=== PATIENT | female | born 1955 | race Two or more races ===

== ENCOUNTER 2024-02-02 10:22 | Inpatient (IN) | payer MEDICARE, MEDICAID ==
[2024-02-02] VITALS (7 sets, daily range): BP systolic 174–236; BP diastolic 75–103; PULSE 64–81; RESP 16–18; TEMP 36.6696; O2SAT 97–98
[~2024-02-02] VITALS: Ht 154.9 cm; Wt 90.0 kg
[2024-02-02 12:26] LABS: BASOPHILS % 0.7 % (0.0-2.0); EOSINOPHILS % 4.4 % (0.0-5.0); HEMOGLOBIN. 12.1 g/dL (12.0-16.0); LYMPHOCYTES % 15.3 % (20.0-50.0); MEAN CORPUSCULAR HEMOGLOBIN 33.6 pg (28.0-32.0); MEAN CORPUSCULAR HGB CONC 31.1 g/dL (31.0-37.0); MEAN CORPUSCULAR VOLUME 108.1 fL (81.0-99.0); MONOCYTES % 5.7 % (2.0-8.0); NEUTROPHILS % 73.9 % (40.0-76.0); WHITE BLOOD COUNT 9.4 x1000/uL (4.5-11.0)
[2024-02-02 12:31] LABS: CHLORIDE 101 mEq/L (98-107); SODIUM 132 mEq/L (136-145)
[2024-02-02 12:32] LABS: CALCIUM 9.2 mg/dL (8.7-10.4); CARBON DIOXIDE 18 mEq/L (21-32)
[2024-02-02 12:35] LABS: DIFFERENTIAL COMMENT 1
[2024-02-02 12:37] LABS: GLUCOSE 89 mg/dL (70-105); POTASSIUM 6.9 mEq/L (3.5-5.1); UREA NITROGEN BLOOD 89 mg/dL (9-23)
[2024-02-02 12:38] LABS: TROPONIN I HIGH SENSITIVITY 13 ng/L (3.0-34)
[2024-02-02 12:42] LABS: CREATININE 11.2 mg/dL (0.6-1.0)
[2024-02-02 12:58] LABS: MEAN PLATELET VOLUME 7.9 fl (7.4-10.4); PLATELET 177 x1000/uL (130-400)
[2024-02-02] MEDS ORDERED: ALBUTEROL (0.083%) 2.5MG/3ML NEB HHN ONE (14:00)
[2024-02-02] MEDS: SODIUM POLYSTYRENE SULFONATE 15 G/60 ML BOT PO ONE (14:00)
[2024-02-02] MEDS: CALCIUM CHLORIDE 1GM/10ML SYR IV ONE (14:00)
[2024-02-02] MEDS: INSULIN REGULAR (HUMULIN R) 1000UNITS/10ML VIAL IV ONE (14:00)
[2024-02-02] MEDS: DEXTROSE 50% WATER 50ML SYRINGE IV ONE (14:00)
[2024-02-02] MEDS: SODIUM BICARBONATE 8.4% 50MEQ/50ML SYR IV ONE (14:00)
[2024-02-02] MEDS ORDERED: LIDOCAINE HCL 1% 20ML VIAL INFIL ONE (14:15)
[2024-02-02] MEDS ORDERED: ACETAMINOPHEN 325MG TABLET PO PRN ×2 (15:00)
[2024-02-02] MEDS ORDERED: NIFEDIPINE XL 30MG TAB PO PRN (15:00)
[2024-02-02] MEDS ORDERED: GUAIFENESIN 200MG/10ML SUGAR FREE UDC PO PRN (15:00)
[2024-02-02] MEDS ORDERED: MAGNESIUM/ALUMINUM HYDROXIDE/SIMETHICONE 30ML UDC PO PRN (15:00)
[2024-02-02] MEDS ORDERED: DOCUSATE SODIUM 100MG CAPSULE PO PRN (15:00)
[2024-02-02] MEDS ORDERED: IPRATROPIUM/ALBUTEROL 0.5-3(2.5)MG/3ML NEB HHN PRN (15:00)
[2024-02-02] MEDS ORDERED: DEXTROSE 50% WATER 50ML SYRINGE IV PRN (15:45)
[2024-02-02] MEDS: ENOXAPARIN 40MG/0.4ML SYR SUBCUT SCH (17:00)
[2024-02-02] MEDS: BLOOD SUGAR DIAGNOSTIC STRIP TEST SCH (17:00)
[2024-02-02] MEDS: INSULIN LISPRO 100 UNITS/ML SUBCUT SCH (18:20)
[2024-02-02 18:33] LABS: HEPATITIS B SURFACE ANTIGEN NEGATIVE (Negative)
[2024-02-02 18:53] LABS: HEPATITIS A AB IGM NEGATIVE (Negative)
[2024-02-02 18:54] LABS: HEPATITIS B CORE AB IGM NEGATIVE (Negative); HEPATITIS C AB NON REACTIVE (Neg) (Negative)
[2024-02-02] MEDS: CLONIDINE 0.1MG TABLET PO PRN (18:56)
[2024-02-02] MEDS: HYDRALAZINE 20MG/ML VIAL IV PRN (20:54)
[2024-02-02] MEDS: METOPROLOL TARTRATE 50MG TABLET PO SCH (21:46)
[2024-02-02] MEDS: ATORVASTATIN CALCIUM 40MG TABLET PO SCH (21:52)
[2024-02-02] MEDS: NIFEDIPINE XL 60MG TAB PO SCH (22:50)
[2024-02-03] MEDS: ZOLPIDEM TARTRATE 5MG TABLET PO NR (01:43)
[2024-02-03 08:40] VITALS: TEMP 36.66960; O2SAT 97
[2024-02-03] MEDS ORDERED: NIFEDIPINE XL 30MG TAB PO SCH (09:00)
[2024-02-03] MEDS ORDERED: CLOPIDOGREL 75MG TABLET PO SCH (09:00)
[2024-02-03 09:55] VITALS: BP 133/49; PULSE 77; RESP 16; TEMP 98
== END 2024-02-03 13:59 | disposition left against medical advice (07) | DRG 562 ==
LOC: ER 10:22 → 5WST 15:13 → 8WST 02-03 11:14
PROVIDERS: ADMIT Hospitalist; ATTEND Hospitalist
PROC: 5A1D70Z Performance of Urinary Filtration, Intermittent, Less than 6 Hours Per Day (ICD-10-PCS; principal; 2024-02-03)
DX: S82.55XA Nondisplaced fracture of medial malleolus of left tibia, initial encounter for closed fracture (principal); N18.6 End stage renal disease; I12.0 Hypertensive chronic kidney disease with stage 5 chronic kidney disease or end stage renal disease; E87.1 Hypo-osmolality and hyponatremia; E87.20 Acidosis, unspecified; Z66 Do not resuscitate; Z68.37 Body mass index [BMI] 37.0-37.9, adult; I16.0 Hypertensive urgency; E87.5 Hyperkalemia; E11.22 Type 2 diabetes mellitus with diabetic chronic kidney disease; E78.5 Hyperlipidemia, unspecified; E66.01 Morbid (severe) obesity due to excess calories; Z99.3 Dependence on wheelchair; Z53.29 Procedure and treatment not carried out because of patient's decision for other reasons; Z99.2 Dependence on renal dialysis; Z85.51 Personal history of malignant neoplasm of bladder; Z85.3 Personal history of malignant neoplasm of breast; Z79.02 Long term (current) use of antithrombotics/antiplatelets; W18.39XA Other fall on same level, initial encounter; Y93.89 Activity, other specified; Y92.89 Other specified places as the place of occurrence of the external cause; Y99.8 Other external cause status
CPT/HCPCS: 36415; 71045; 73610; 80048; 82962; 83036; 83735; 84484; 85025; 86705; 86709; 87340; 90935; 93005; 99285; J0360; J1650; J1815; J3490